=== PATIENT | female | born 1955 | race African-American/Black ===

== ENCOUNTER 2019-01-13 14:09 | Inpatient (IN) | payer MEDICARE, MEDICAID ==
[~2019-01-13] VITALS: Ht 236.2 cm; Wt 72.7 kg
[2019-01-13] MEDS ORDERED: MORPHINE SULFATE 4 MG/ML CPJ (NOT FOR IM USE) IV STA (16:14)
[2019-01-13] MEDS ORDERED: ONDANSETRON HCL 4MG/2ML INJ IV STA (16:14)
[2019-01-13] MEDS ORDERED: SODIUM CHLORIDE 0.9% 1,000 ML IV ONE (16:14)
[2019-01-13 16:41] LABS: EOSINOPHILS % 1.8 % (0.0-5.0); HEMATOCRIT. 33.3 % (36.0-48.0); HEMOGLOBIN. 10.8 g/dL (12.0-16.0); LYMPHOCYTES % 21.4 % (20.0-50.0); MEAN CORPUSCULAR HEMOGLOBIN 24.3 pg (28.0-32.0); MEAN CORPUSCULAR VOLUME 75.1 fL (81.0-99.0); MEAN PLATELET VOLUME 10.8 fl (7.4-10.4); MONOCYTES % 5.4 % (2.0-8.0); NEUTROPHILS % 70.4 % (40.0-76.0); PLATELET 83 x1000/uL (130-400); RED BLOOD CELL COUNT 4.43 mill/uL (4.2-5.4); RED CELL DISTRIBUTION WIDTH 16.6 % (11.6-14.6)
[2019-01-13 16:45] LABS: CHLORIDE 112 mEq/L (98-107)
[2019-01-13 16:51] LABS: D-DIMER 1.11 mg/L FEU (<0.50); INR 1.4; PARTIAL THROMBOPLASTIN TIME 28.3 sec (23.4-31.0); PROTHROMBIN TIME 14.3 sec (9.6-11.0)
[2019-01-13] MEDS ORDERED: MORPHINE SULFATE 4 MG/ML CPJ (NOT FOR IM USE) IV ONE (18:15)
[2019-01-13] MEDS ORDERED: ACETAMINOPHEN 325MG TABLET PO PRN (22:30)
[2019-01-13] MEDS ORDERED: IOHEXOL-350 100 ML BOTTLE ONE (22:54)
[2019-01-14] VITALS: BP 174/87
[2019-01-14] MEDS ORDERED: PREG50CA MT (01:06)
[2019-01-14] MEDS: MORPHINE SULFATE 2 MG/ML CPJ (NOT FOR IM USE) IV PRN ×3 (02:32→14:31)
[2019-01-14] MEDS: SODIUM CHLORIDE 0.9% 1,000 ML IV SCH ×2 (02:32→18:29)
[2019-01-14] MEDS: POTASSIUM CHLORIDE 20MEQ TABLET SR PO SCH ×2 (02:32→09:09)
[2019-01-14 04:00] VITALS: BP 128/72
[2019-01-14] MEDS: LORAZEPAM 2MG/ML CPJ IV PRN ×2 (04:24→20:56)
[2019-01-14] MEDS ORDERED: DEXTROSE 50% WATER 50ML SYRINGE IV PRN (06:00)
[2019-01-14] MEDS: BLOOD SUGAR DIAGNOSTIC STRIP TEST SCH ×4 (07:40→20:42)
[2019-01-14 08:00] VITALS: BP 138/99
[2019-01-14] MEDS ORDERED: ENOXAPARIN 40MG/0.4ML SYR SUBCUT SCH (09:00)
[2019-01-14] MEDS: THIAMINE HCL 100MG TABLET PO SCH (09:09)
[2019-01-14] MEDS: FOLIC ACID 1MG TABLET PO SCH (09:09)
[2019-01-14] MEDS: INSULIN LISPRO 100 UNITS/ML SUBCUT SCH ×4 (09:27→20:57)
[2019-01-14] MEDS: ONDANSETRON HCL 4MG/2ML INJ IV PRN (10:33)
[2019-01-14 10:44] LABS: CLARITY URINE CLEAR (CLEAR); COLOR URINE YELLOW (YELLOW); KETONES URINE NEGATIVE (NEGATIVE); LEUKOCYTE ESTERASE URINE NEGATIVE (NEGATIVE); NITRITE URINE NEGATIVE (NEGATIVE); OCCULT BLOOD URINE NEGATIVE (NEGATIVE); PH URINE 7.5 (4.5-8.0); PROTEIN URINE 1+ (NEGATIVE)
[2019-01-14 11:04] LABS: BASOPHILS % 0.5 % (0.0-2.0); EOSINOPHILS % 1.5 % (0.0-5.0); HEMATOCRIT. 34.7 % (36.0-48.0); HEMOGLOBIN. 11.1 g/dL (12.0-16.0); LYMPHOCYTES % 12.8 % (20.0-50.0); MEAN CORPUSCULAR HEMOGLOBIN 24.2 pg (28.0-32.0); MEAN CORPUSCULAR VOLUME 75.4 fL (81.0-99.0); MEAN PLATELET VOLUME 11.1 fl (7.4-10.4); NEUTROPHILS % 79.2 % (40.0-76.0); PLATELET 76 x1000/uL (130-400); RED BLOOD CELL COUNT 4.61 mill/uL (4.2-5.4); RED CELL DISTRIBUTION WIDTH 16.1 % (11.6-14.6)
[2019-01-14 11:08] LABS: *AMPHETAMINES SCREEN URINE NEGATIVE (NEGATIVE); *BARBITURATES SCREEN URINE NEGATIVE (NEGATIVE); *COCAINE SCREEN URINE NEGATIVE (NEGATIVE); METHADONE URINE SCREEN NEGATIVE (NEGATIVE); OPIATES URINE SCREEN PRESUMTIVE POSITIVE (NEGATIVE)
[2019-01-14 11:09] LABS: *BENZODIAZEPINES SCREEN URINE NEGATIVE (NEGATIVE); CANNABINOID URINE SCREEN NEGATIVE (NEGATIVE); PHENCYCLIDINE URINE SCREEN NEGATIVE (NEGATIVE)
[2019-01-14 11:27] LABS: CHLORIDE 104 mEq/L (98-107)
[2019-01-14 12:00] VITALS: BP 145/92
[2019-01-14 12:29] LABS: HEPATITIS B SURFACE ANTIGEN NEGATIVE
[2019-01-14] MEDS: HYDROCODONE/ACETAMINOPHEN 5/325MG TABLET PO PRN ×2 (12:45→23:24)
[2019-01-14 12:59] LABS: HEPATITIS A AB IGM NEGATIVE (NEGATIVE)
[2019-01-14 16:00] VITALS: BP 170/97
[2019-01-14] MEDS: OMEPRAZOLE 20MG CAPSULE EXTENDED RELEASE PO SCH (19:11)
[2019-01-14 20:00] VITALS: BP 154/77
[2019-01-14 22:53] LABS: BG BASE EXCESS 2.5 mmol/L (-2.0-2.0); BG DEOXYHEMOGLOBIN 3.7 % (0.0-5.0); BG FRACTION INSPIRED OXYGEN 21; BG HCO3 ACT 26.6 mmol/L (22.0-26.0); BG METHEMOGLOBIN 0.2 % (0.0-1.5); BG OXYGEN SATURATION 96.3 % (92.0-98.5); BG OXYHEMOGLOBIN 95.1 % (94.0-97.0); BG PCO2 39.1 mmHg (35.0-45.0); BG PO2 83.9 mmHg (75.0-100.0); BG SAMPLE SITE LEFT BRACHIAL; BG TOTAL HEMOGLOBIN 11.9 g/dL (12.0-18.0); BG VENT MODE ROOM AIR
[2019-01-15] VITALS: BP 150/88
[2019-01-15 04:00] VITALS: BP 142/98
[2019-01-15] MEDS: BLOOD SUGAR DIAGNOSTIC STRIP TEST SCH ×4 (07:40→20:06)
[2019-01-15 08:00] VITALS: BP 139/84
[2019-01-15] MEDS: THIAMINE HCL 100MG TABLET PO SCH (09:00)
[2019-01-15] MEDS: POTASSIUM CHLORIDE 20MEQ TABLET SR PO SCH (09:00)
[2019-01-15] MEDS: FOLIC ACID 1MG TABLET PO SCH (09:00)
[2019-01-15] MEDS: MULTIVITAMINS,THER W-MINERALS TABLET PO SCH (09:00)
[2019-01-15] MEDS: SODIUM CHLORIDE 0.9% 1,000 ML IV SCH (11:09)
[2019-01-15 11:43] LABS: BASOPHILS % 0.6 % (0.0-2.0); EOSINOPHILS % 1.5 % (0.0-5.0); HEMATOCRIT. 36.1 % (36.0-48.0); HEMOGLOBIN. 11.5 g/dL (12.0-16.0); LYMPHOCYTES % 9.7 % (20.0-50.0); MEAN CORPUSCULAR VOLUME 75.2 fL (81.0-99.0); MEAN PLATELET VOLUME 11.1 fl (7.4-10.4); MONOCYTES % 6.6 % (2.0-8.0); NEUTROPHILS % 81.6 % (40.0-76.0); PLATELET 92 x1000/uL (130-400); RED BLOOD CELL COUNT 4.79 mill/uL (4.2-5.4); RED CELL DISTRIBUTION WIDTH 16.3 % (11.6-14.6)
[2019-01-15 12:00] VITALS: BP 144/98
[2019-01-15] MEDS: INSULIN LISPRO 100 UNITS/ML SUBCUT SCH ×3 (12:52→20:08)
[2019-01-15] MEDS: DIPHENHYDRAMINE 25MG CAPSULE PO PRN ×2 (15:35→22:15)
[2019-01-15 16:00] VITALS: BP 144/90
[2019-01-15] MEDS: OMEPRAZOLE 20MG CAPSULE EXTENDED RELEASE PO SCH (17:35)
[2019-01-15] MEDS: OXYCODONE HCL 5MG TABLET PO PRN (20:51)
[2019-01-16 00:02] VITALS: BP 132/91
[2019-01-16] MEDS: LORAZEPAM 2MG/ML CPJ IV PRN ×2 (00:02→13:35)
[2019-01-16] MEDS: SODIUM CHLORIDE 0.9% 1,000 ML IV SCH ×2 (03:49→20:56)
[2019-01-16 04:48] VITALS: BP 108/73
[2019-01-16 06:13] LABS: BASOPHILS % 0.4 % (0.0-2.0); EOSINOPHILS % 1.7 % (0.0-5.0); HEMOGLOBIN. 11.6 g/dL (12.0-16.0); LYMPHOCYTES % 16.5 % (20.0-50.0); MEAN CORPUSCULAR HEMOGLOBIN 24.3 pg (28.0-32.0); MEAN CORPUSCULAR VOLUME 75.2 fL (81.0-99.0); MEAN PLATELET VOLUME 11.4 fl (7.4-10.4); MONOCYTES % 7.1 % (2.0-8.0); NEUTROPHILS % 74.3 % (40.0-76.0); PLATELET 85 x1000/uL (130-400); RED BLOOD CELL COUNT 4.78 mill/uL (4.2-5.4); RED CELL DISTRIBUTION WIDTH 16.4 % (11.6-14.6)
[2019-01-16 06:35] LABS: CHLORIDE 108 mEq/L (98-107)
[2019-01-16 08:00] VITALS: BP 117/72
[2019-01-16] MEDS: FOLIC ACID 1MG TABLET PO SCH (08:28)
[2019-01-16] MEDS: POTASSIUM CHLORIDE 20MEQ TABLET SR PO SCH (08:31)
[2019-01-16] MEDS: BLOOD SUGAR DIAGNOSTIC STRIP TEST SCH ×4 (08:32→20:56)
[2019-01-16] MEDS: OMEPRAZOLE 20MG CAPSULE EXTENDED RELEASE PO SCH (08:32)
[2019-01-16] MEDS: MULTIVITAMINS,THER W-MINERALS TABLET PO SCH (08:32)
[2019-01-16] MEDS: THIAMINE HCL 100MG TABLET PO SCH (08:32)
[2019-01-16] MEDS: INSULIN LISPRO 100 UNITS/ML SUBCUT SCH ×4 (08:40→21:00)
[2019-01-16] MEDS: OXYCODONE HCL 5MG TABLET PO PRN ×3 (09:17→22:33)
[2019-01-16] MEDS: ONDANSETRON HCL 4MG/2ML INJ IV PRN (09:17)
[2019-01-16 12:00] VITALS: BP 103/72
[2019-01-16 15:23] LABS: INR 1.3; PROTHROMBIN TIME 13.6 sec (9.6-11.0)
[2019-01-16 15:26] VITALS: BP 121/75
[2019-01-16] MEDS: DIPHENHYDRAMINE 25MG CAPSULE PO PRN ×2 (15:28→22:33)
[2019-01-16] MEDS ORDERED: SORBITOL 70% SOLN 30ML PO NR ×2 (16:00→20:00)
[2019-01-16 20:00] VITALS: BP 126/85
[2019-01-16] MEDS: HYDROCODONE/ACETAMINOPHEN 5/325MG TABLET PO PRN (20:53)
[2019-01-16] MEDS: PANTOPRAZOLE SODIUM 40 MG/VIAL IV SCH (20:55)
[2019-01-16] MEDS: INSULIN GLARGINE UD 100 UNITS/ML SYR SUBCUT SCH (22:35)
[2019-01-17] VITALS: BP 128/81
[2019-01-17] MEDS: LORAZEPAM 2MG/ML CPJ IV PRN ×2 (00:27→21:48)
[2019-01-17 04:00] VITALS: BP 158/103
[2019-01-17 08:00] VITALS: BP 115/76
[2019-01-17] MEDS: INSULIN LISPRO 100 UNITS/ML SUBCUT SCH ×4 (08:00→20:43)
[2019-01-17] MEDS: BLOOD SUGAR DIAGNOSTIC STRIP TEST SCH ×4 (08:00→21:00)
[2019-01-17] MEDS: THIAMINE HCL 100MG TABLET PO SCH (08:12)
[2019-01-17] MEDS: MULTIVITAMINS,THER W-MINERALS TABLET PO SCH (08:12)
[2019-01-17] MEDS: POTASSIUM CHLORIDE 20MEQ TABLET SR PO SCH (08:12)
[2019-01-17] MEDS: FOLIC ACID 1MG TABLET PO SCH (08:12)
[2019-01-17] MEDS: PANTOPRAZOLE SODIUM 40 MG/VIAL IV SCH ×2 (09:32→20:42)
[2019-01-17] MEDS: INSULIN GLARGINE UD 100 UNITS/ML SYR SUBCUT SCH ×2 (10:00→21:49)
[2019-01-17 10:14] LABS: BASOPHILS % 0.3 % (0.0-2.0); EOSINOPHILS % 1.2 % (0.0-5.0); HEMATOCRIT. 35.8 % (36.0-48.0); HEMOGLOBIN. 11.5 g/dL (12.0-16.0); LYMPHOCYTES % 10.4 % (20.0-50.0); MEAN CORPUSCULAR HEMOGLOBIN 24.5 pg (28.0-32.0); MEAN CORPUSCULAR VOLUME 76.7 fL (81.0-99.0); MEAN PLATELET VOLUME 11.3 fl (7.4-10.4); MONOCYTES % 6.9 % (2.0-8.0); NEUTROPHILS % 81.2 % (40.0-76.0); PLATELET 89 x1000/uL (130-400); RED BLOOD CELL COUNT 4.67 mill/uL (4.2-5.4); RED CELL DISTRIBUTION WIDTH 16.7 % (11.6-14.6)
[2019-01-17 10:25] LABS: CHLORIDE 114 mEq/L (98-107)
[2019-01-17 12:00] VITALS: BP 130/72
[2019-01-17] MEDS: SODIUM CHLORIDE 0.9% 1,000 ML IV SCH (14:26)
[2019-01-17] MEDS ORDERED: PROPOFOL 200MG/20ML VIAL IV ONE (14:48)
[2019-01-17] MEDS ORDERED: LIDOCAINE HCL/PF 1% 10 MG/ML 5ML VIAL ONE (14:48)
[2019-01-17 17:10] VITALS: BP 117/71
[2019-01-17 20:00] VITALS: BP 127/78
[2019-01-17] MEDS: OXYCODONE HCL 5MG TABLET PO PRN (20:40)
[2019-01-17] MEDS: DIPHENHYDRAMINE 25MG CAPSULE PO PRN (20:42)
[2019-01-18] VITALS: BP 111/69
[2019-01-18 04:00] VITALS: BP 125/77
[2019-01-18] MEDS: SODIUM CHLORIDE 0.9% 1,000 ML IV SCH ×2 (05:49→22:29)
[2019-01-18] MEDS: BLOOD SUGAR DIAGNOSTIC STRIP TEST SCH ×4 (05:49→20:33)
[2019-01-18] MEDS: OXYCODONE HCL 5MG TABLET PO PRN ×3 (05:54→20:32)
[2019-01-18] MEDS: DIPHENHYDRAMINE 25MG CAPSULE PO PRN ×2 (05:54→17:53)
[2019-01-18 08:00] VITALS: BP 123/72
[2019-01-18] MEDS: POTASSIUM CHLORIDE 20MEQ TABLET SR PO SCH (09:01)
[2019-01-18] MEDS: PANTOPRAZOLE SODIUM 40 MG/VIAL IV SCH ×2 (09:01→20:32)
[2019-01-18] MEDS: THIAMINE HCL 100MG TABLET PO SCH (09:01)
[2019-01-18] MEDS: FOLIC ACID 1MG TABLET PO SCH (09:01)
[2019-01-18] MEDS: MULTIVITAMINS,THER W-MINERALS TABLET PO SCH (09:02)
[2019-01-18] MEDS: INSULIN GLARGINE UD 100 UNITS/ML SYR SUBCUT SCH ×2 (09:19→23:34)
[2019-01-18] MEDS: INSULIN LISPRO 100 UNITS/ML SUBCUT SCH ×4 (09:22→20:33)
[2019-01-18 12:00] VITALS: BP 135/68
[2019-01-18] MEDS: PROPRANOLOL HCL 10MG TABLET PO SCH ×2 (13:49→20:32)
[2019-01-18 16:00] VITALS: BP 132/63
[2019-01-18] MEDS: LORAZEPAM 2MG/ML CPJ IV PRN (23:32)
[2019-01-19] VITALS: BP 121/70
[2019-01-19] MEDS: DIPHENHYDRAMINE 25MG CAPSULE PO PRN ×2 (00:28→08:30)
[2019-01-19] MEDS: OXYCODONE HCL 5MG TABLET PO PRN ×4 (02:58→21:01)
[2019-01-19 04:00] VITALS: BP 118/69
[2019-01-19] MEDS: BLOOD SUGAR DIAGNOSTIC STRIP TEST SCH ×4 (06:45→20:19)
[2019-01-19 07:20] LABS: BASOPHILS % 0.4 % (0.0-2.0); EOSINOPHILS % 3.1 % (0.0-5.0); HEMATOCRIT. 32.6 % (36.0-48.0); HEMOGLOBIN. 10.4 g/dL (12.0-16.0); LYMPHOCYTES % 19.8 % (20.0-50.0); MEAN CORPUSCULAR HEMOGLOBIN 24.8 pg (28.0-32.0); MEAN CORPUSCULAR VOLUME 77.5 fL (81.0-99.0); MEAN PLATELET VOLUME 11.7 fl (7.4-10.4); MONOCYTES % 8.6 % (2.0-8.0); NEUTROPHILS % 68.1 % (40.0-76.0); PLATELET 73 x1000/uL (130-400); RED BLOOD CELL COUNT 4.21 mill/uL (4.2-5.4)
[2019-01-19 07:42] LABS: CHLORIDE 110 mEq/L (98-107)
[2019-01-19] MEDS: INSULIN LISPRO 100 UNITS/ML SUBCUT SCH ×4 (07:55→20:19)
[2019-01-19 08:00] VITALS: BP 104/71
[2019-01-19] MEDS: PROPRANOLOL HCL 10MG TABLET PO SCH ×2 (09:00→20:50)
[2019-01-19] MEDS: PANTOPRAZOLE SODIUM 40 MG/VIAL IV SCH ×2 (09:00→20:49)
[2019-01-19] MEDS: MULTIVITAMINS,THER W-MINERALS TABLET PO SCH (10:01)
[2019-01-19] MEDS: THIAMINE HCL 100MG TABLET PO SCH (10:01)
[2019-01-19] MEDS: FOLIC ACID 1MG TABLET PO SCH (10:01)
[2019-01-19] MEDS: POTASSIUM CHLORIDE 20MEQ TABLET SR PO SCH (10:01)
[2019-01-19] MEDS: INSULIN GLARGINE UD 100 UNITS/ML SYR SUBCUT SCH ×2 (10:05→21:04)
[2019-01-19] MEDS: SODIUM CHLORIDE 0.9% 1,000 ML IV SCH (15:09)
[2019-01-19 15:43] VITALS: BP 124/82
[2019-01-19 20:00] VITALS: BP 145/80
[2019-01-19] MEDS: LORAZEPAM 1MG TABLET PO PRN (23:16)
[2019-01-20] VITALS: BP 115/69
[2019-01-20] MEDS: HYDROCODONE/ACETAMINOPHEN 5/325MG TABLET PO PRN ×2 (00:59→21:15)
[2019-01-20] MEDS: DIPHENHYDRAMINE 25MG CAPSULE PO PRN (03:16)
[2019-01-20 04:00] VITALS: BP 140/69
[2019-01-20] MEDS: BLOOD SUGAR DIAGNOSTIC STRIP TEST SCH ×4 (06:10→21:05)
[2019-01-20] MEDS: SODIUM CHLORIDE 0.9% 1,000 ML IV SCH (07:49)
[2019-01-20 08:00] VITALS: BP 113/68
[2019-01-20] MEDS: INSULIN LISPRO 100 UNITS/ML SUBCUT SCH ×4 (08:10→21:05)
[2019-01-20] MEDS: PROPRANOLOL HCL 10MG TABLET PO SCH ×2 (09:00→21:01)
[2019-01-20] MEDS: PANTOPRAZOLE SODIUM 40 MG/VIAL IV SCH ×2 (09:36→21:00)
[2019-01-20] MEDS: POTASSIUM CHLORIDE 20MEQ TABLET SR PO SCH (09:36)
[2019-01-20] MEDS: FOLIC ACID 1MG TABLET PO SCH (09:37)
[2019-01-20] MEDS: MULTIVITAMINS,THER W-MINERALS TABLET PO SCH (09:37)
[2019-01-20] MEDS: THIAMINE HCL 100MG TABLET PO SCH (09:37)
[2019-01-20] MEDS: OXYCODONE HCL 5MG TABLET PO PRN ×3 (10:56→23:58)
[2019-01-20] MEDS: INSULIN GLARGINE UD 100 UNITS/ML SYR SUBCUT SCH ×2 (10:59→22:19)
[2019-01-20 12:00] VITALS: BP 128/86
[2019-01-20 16:00] VITALS: BP 139/89
[2019-01-20 20:00] VITALS: BP 158/86
[2019-01-20] MEDS: METHOCARBAMOL 750MG TABLET PO SCH (21:00)
[2019-01-20] MEDS: LORAZEPAM 1MG TABLET PO PRN (21:00)
[2019-01-21] VITALS: BP 140/73
[2019-01-21 04:00] VITALS: BP 118/60
[2019-01-21] MEDS: METHOCARBAMOL 750MG TABLET PO SCH ×3 (05:56→22:01)
[2019-01-21] MEDS: OXYCODONE HCL 5MG TABLET PO PRN ×3 (06:14→20:43)
[2019-01-21] MEDS: BLOOD SUGAR DIAGNOSTIC STRIP TEST SCH ×4 (07:40→21:22)
[2019-01-21 08:00] VITALS: BP 141/70
[2019-01-21] MEDS: INSULIN LISPRO 100 UNITS/ML SUBCUT SCH ×4 (08:10→21:00)
[2019-01-21] MEDS: PANTOPRAZOLE SODIUM 40 MG/VIAL IV SCH ×2 (08:45→21:15)
[2019-01-21] MEDS: MULTIVITAMINS,THER W-MINERALS TABLET PO SCH (08:46)
[2019-01-21] MEDS: PREGABALIN 75MG CAPSULE PO SCH ×2 (08:47→21:14)
[2019-01-21] MEDS: DICLOFENAC SODIUM 75MG DR (EC) TABLET PO SCH ×2 (08:47→21:14)
[2019-01-21] MEDS: DULOXETINE HCL 60MG DR CAPSULE PO SCH (08:47)
[2019-01-21] MEDS: FOLIC ACID 1MG TABLET PO SCH (08:47)
[2019-01-21] MEDS: THIAMINE HCL 100MG TABLET PO SCH (08:47)
[2019-01-21] MEDS: PROPRANOLOL HCL 10MG TABLET PO SCH ×2 (08:48→21:15)
[2019-01-21] MEDS: POTASSIUM CHLORIDE 20MEQ TABLET SR PO SCH (08:48)
[2019-01-21 09:11] LABS: T4 FREE 0.87 ng/dL (0.76-1.46)
[2019-01-21] MEDS: INSULIN GLARGINE UD 100 UNITS/ML SYR SUBCUT SCH ×2 (10:47→21:23)
[2019-01-21 11:09] LABS: CREATINE KINASE 76 IU/L (26-192)
[2019-01-21 12:00] VITALS: BP 128/69
[2019-01-21] MEDS: HYDROCODONE/ACETAMINOPHEN 5/325MG TABLET PO PRN (14:22)
[2019-01-21 16:00] VITALS: BP 95/50
[2019-01-21 20:00] VITALS: BP 131/75
[2019-01-22 00:21] VITALS: BP 99/56
[2019-01-22 04:00] VITALS: BP 110/66
[2019-01-22] MEDS: HYDROCODONE/ACETAMINOPHEN 5/325MG TABLET PO PRN (04:45)
[2019-01-22] MEDS: METHOCARBAMOL 750MG TABLET PO SCH ×3 (06:05→21:54)
[2019-01-22] MEDS: BLOOD SUGAR DIAGNOSTIC STRIP TEST SCH ×4 (06:18→21:30)
[2019-01-22 08:00] VITALS: BP 95/66
[2019-01-22] MEDS: INSULIN LISPRO 100 UNITS/ML SUBCUT SCH ×4 (08:10→21:00)
[2019-01-22] MEDS: PANTOPRAZOLE SODIUM 40 MG/VIAL IV SCH (08:49)
[2019-01-22] MEDS: POTASSIUM CHLORIDE 20MEQ TABLET SR PO SCH (08:50)
[2019-01-22] MEDS: PROPRANOLOL HCL 10MG TABLET PO SCH ×2 (08:50→21:54)
[2019-01-22] MEDS: MULTIVITAMINS,THER W-MINERALS TABLET PO SCH (08:51)
[2019-01-22] MEDS: THIAMINE HCL 100MG TABLET PO SCH (08:51)
[2019-01-22] MEDS: PREGABALIN 75MG CAPSULE PO SCH ×2 (08:51→21:53)
[2019-01-22] MEDS: DICLOFENAC SODIUM 75MG DR (EC) TABLET PO SCH ×2 (08:51→21:53)
[2019-01-22] MEDS: DULOXETINE HCL 60MG DR CAPSULE PO SCH (09:05)
[2019-01-22] MEDS: FOLIC ACID 1MG TABLET PO SCH (09:05)
[2019-01-22] MEDS: INSULIN GLARGINE UD 100 UNITS/ML SYR SUBCUT SCH ×2 (10:00→21:31)
[2019-01-22] MEDS: OXYCODONE HCL 5MG TABLET PO PRN ×2 (11:23→20:17)
[2019-01-22 12:00] VITALS: BP 117/68
[2019-01-22] MEDS: LORAZEPAM 1MG TABLET PO PRN (15:48)
[2019-01-22 16:00] VITALS: BP 115/70
[2019-01-22 20:00] VITALS: BP 133/82
[2019-01-22] MEDS: PANTOPRAZOLE 40MG DR TABLET PO SCH (21:53)
[2019-01-23] VITALS: BP 92/50
[2019-01-23] MEDS: BLOOD SUGAR DIAGNOSTIC STRIP TEST SCH ×2 (05:59→12:40)
[2019-01-23] MEDS: METHOCARBAMOL 750MG TABLET PO SCH ×2 (06:03→14:00)
[2019-01-23] MEDS: OXYCODONE HCL 5MG TABLET PO PRN (06:04)
[2019-01-23 07:14] LABS: BASOPHILS % 0.8 % (0.0-2.0); EOSINOPHILS % 4.3 % (0.0-5.0); HEMATOCRIT. 31.5 % (36.0-48.0); LYMPHOCYTES % 19.9 % (20.0-50.0); MEAN CORPUSCULAR HEMOGLOBIN 24.6 pg (28.0-32.0); MEAN CORPUSCULAR VOLUME 77.6 fL (81.0-99.0); MEAN PLATELET VOLUME 12.1 fl (7.4-10.4); MONOCYTES % 12.5 % (2.0-8.0); NEUTROPHILS % 62.5 % (40.0-76.0); PLATELET 67 x1000/uL (130-400); RED BLOOD CELL COUNT 4.06 mill/uL (4.2-5.4); RED CELL DISTRIBUTION WIDTH 18.2 % (11.6-14.6)
[2019-01-23 07:39] LABS: CHLORIDE 110 mEq/L (98-107)
[2019-01-23 08:00] VITALS: BP 104/53
[2019-01-23] MEDS: INSULIN LISPRO 100 UNITS/ML SUBCUT SCH ×2 (08:10→13:10)
[2019-01-23 09:08] LABS: COMPLEMENT C3 103 mg/dL (82-167); G6PD RBC 4.26 x10E6/uL (3.77-5.28)
[2019-01-23] MEDS: INSULIN GLARGINE UD 100 UNITS/ML SYR SUBCUT SCH (10:00)
[2019-01-23] MEDS: FOLIC ACID 1MG TABLET PO SCH (10:24)
[2019-01-23] MEDS: MULTIVITAMINS,THER W-MINERALS TABLET PO SCH (10:24)
[2019-01-23] MEDS: DULOXETINE HCL 60MG DR CAPSULE PO SCH (10:24)
[2019-01-23] MEDS: POTASSIUM CHLORIDE 20MEQ TABLET SR PO SCH (10:24)
[2019-01-23] MEDS: DICLOFENAC SODIUM 75MG DR (EC) TABLET PO SCH (10:24)
[2019-01-23] MEDS: PROPRANOLOL HCL 10MG TABLET PO SCH (10:24)
[2019-01-23] MEDS: PREGABALIN 75MG CAPSULE PO SCH (10:25)
[2019-01-23] MEDS: PANTOPRAZOLE 40MG DR TABLET PO SCH (10:25)
[2019-01-23] MEDS: THIAMINE HCL 100MG TABLET PO SCH (10:25)
[2019-01-23] MEDS: HYDROCODONE/ACETAMINOPHEN 5/325MG TABLET PO PRN ×2 (10:37→15:10)
[2019-01-23 12:00] VITALS: BP 120/71
[2019-01-23] MEDS: LORAZEPAM 1MG TABLET PO PRN (15:10)
[2019-01-23 16:05] VITALS: BP 120/71
[2019-01-24 13:08] LABS: G6PD QUANTITATIVE 412 (146-376)
[2019-01-25 07:02] LABS: ANTI-DNA DOUBLE STRANDED QUANT < 1 IU/mL (0-9); ANTI-JO 1 ABS <0.2 AI (0.0-0.9); RNP ANTIBODY 0.2 AI (0.0-0.9); SMITH ANTIBODY < 0.2 AI (0.0-0.9)
[2019-01-25 10:10] LABS: ANTI-CARDIOLIPIN AB IGA 10 APL U/mL (0-11); ANTI-CARDIOLIPIN AB IGG < 9 GPL U/mL (0-14); ANTI-CARDIOLIPIN AB IGM 9 MPL U/mL (0-12)
[2019-01-25 13:34] LABS: ANA IFA Negative (.); ANGIOTENSION CONVERTING ENZYME 25 U/L (14-82); ATYPICAL P-ANCA <1:20 titer (Neg:<1:20); CYTOPLASMIC C-ANCA <1:20 titer (Neg:<1:20); MITOCHONDRIAL M2 AB <20.0 Units (0.0-20.0); PERINUCLEAR P-ANCA <1:20 titer (Neg:<1:20); VITAMIN D 1-25 DIHYDROXY 52.8 pg/mL (19.9-79.3)
[2019-01-25 15:10] LABS: ACTIN (SMOOTH MUSCLE) ANTIBODY 12 Units (0-19); ANTI-MYELOPEROXIDASE AB < 9.0 U/mL (0.0-9.0); ANTI-PROTEINASE 3 ABS < 3.5 U/mL (0.0-3.5)
[2019-01-25 19:10] LABS: CYC CITRULLINATED PEP IgG/IgA 9 units (0-19)
[2019-01-26 04:11] LABS: ALDOLASE 4.6 U/L (3.3-10.3); DRVVT LA 38.3 sec (0.0-47.0); LUPUS ANTICOAG INTERPRETATION Comment: (.); PTT-LA 46.5 sec (0.0-51.9)
== END 2019-01-23 17:00 | disposition home or self-care (01) | DRG 391 ==
LOC: ER 14:09 → 6EST 21:03 → EDBEDREQ 21:26 → ENRESERV 21:53 → 7WST 01-14 03:05
PROVIDERS: ADMIT Internal Medicine Nephrology; ATTEND Internal Medicine Nephrology
PROC: 0DB78ZX Excision of Stomach, Pylorus, Via Natural or Artificial Opening Endoscopic, Diagnostic (ICD-10-PCS; principal; 2019-01-20)
PROC: 0DJD8ZZ Inspection of Lower Intestinal Tract, Via Natural or Artificial Opening Endoscopic (ICD-10-PCS; 2019-01-20)
DX: K52.9 Noninfective gastroenteritis and colitis, unspecified (principal); J96.00 Acute respiratory failure, unspecified whether with hypoxia or hypercapnia; D61.818 Other pancytopenia; K76.6 Portal hypertension; I27.82 Chronic pulmonary embolism; G93.40 Encephalopathy, unspecified; I85.00 Esophageal varices without bleeding; C18.9 Malignant neoplasm of colon, unspecified; D68.9 Coagulation defect, unspecified; E46 Unspecified protein-calorie malnutrition; K57.90 Diverticulosis of intestine, part unspecified, without perforation or abscess without bleeding; E87.6 Hypokalemia; E87.8 Other disorders of electrolyte and fluid balance, not elsewhere classified; E11.9 Type 2 diabetes mellitus without complications; G89.29 Other chronic pain; F10.10 Alcohol abuse, uncomplicated; K64.8 Other hemorrhoids; F41.8 Other specified anxiety disorders; I73.00 Raynaud's syndrome without gangrene; J45.909 Unspecified asthma, uncomplicated; K63.5 Polyp of colon; R74.0 Nonspecific elevation of levels of transaminase and lactic acid dehydrogenase [LDH]; K31.89 Other diseases of stomach and duodenum; K70.31 Alcoholic cirrhosis of liver with ascites; M06.9 Rheumatoid arthritis, unspecified; M13.0 Polyarthritis, unspecified; M62.89 Other specified disorders of muscle; M79.7 Fibromyalgia; N20.0 Calculus of kidney; Z59.0 Homelessness; Z80.0 Family history of malignant neoplasm of digestive organs; Z92.21 Personal history of antineoplastic chemotherapy; Z98.891 History of uterine scar from previous surgery; Z86.718 Personal history of other venous thrombosis and embolism
CPT/HCPCS: 36415; 36600; 71045; 71275; 72100; 73030; 73130; 73522; 74176; 76705; 80048; 80076; 80305; 81003; 82085; 82105; 82164; 82375; 82378; 82550; 82595; 82652; 82805; 82955; 82962; 83516; 83520; 83880; 84134; 84439; 84484; 84550; 85041; 85379; 85613; 85651; 85732; 86147; 86160; 86200; 86225; 86235; 86256; 86431; 86592; 86705; 86709; 86780; 86803; 87340; 88305; 88312; 88313; 93005; 93306; 93970; 97116; 97162; 99285; C1893; C9113; J1815; J2060; J2270; J2405; J2704; J3490; J7030; Q0163; Q9967

== ENCOUNTER 2019-01-31 15:20 | Emergency (ER) | payer MEDICARE, MEDICAID ==
[~2019-01-31] VITALS: Ht 162.6 cm; Wt 70.0 kg
[~2019-01-31 15:20] MED LIST: PREG50CA MT
[2019-01-31 16:57] LABS: BASOPHILS % 0.5 % (0.0-2.0); EOSINOPHILS % 2.6 % (0.0-5.0); HEMATOCRIT. 33.7 % (36.0-48.0); HEMOGLOBIN. 10.7 g/dL (12.0-16.0); MEAN CORPUSCULAR HEMOGLOBIN 24.8 pg (28.0-32.0); MEAN CORPUSCULAR VOLUME 77.9 fL (81.0-99.0); MEAN PLATELET VOLUME 10.7 fl (7.4-10.4); MONOCYTES % 10.9 % (2.0-8.0); PLATELET 78 x1000/uL (130-400); RED BLOOD CELL COUNT 4.33 mill/uL (4.2-5.4); RED CELL DISTRIBUTION WIDTH 18.7 % (11.6-14.6)
[2019-01-31 16:59] LABS: CHLORIDE 111 mEq/L (98-107)
[2019-01-31] MEDS ORDERED: HYDROCODONE/ACETAMINOPHEN 5/325MG TABLET PO ONE (17:15)
[2019-01-31] MEDS ORDERED: KETOROLAC 30MG/ML VIAL IV ONE (17:15)
[2019-01-31 19:00] VITALS: BP 145/98
[2019-01-31] MEDS ORDERED: POTASSIUM CHLORIDE 20MEQ TABLET SR PO ONE (20:00)
== END 2019-01-31 21:14 | disposition home or self-care (01) ==
LOC: ER 15:20
DX: G89.29 Other chronic pain (principal); D50.9 Iron deficiency anemia, unspecified; F41.9 Anxiety disorder, unspecified; M25.559 Pain in unspecified hip; F32.9 Major depressive disorder, single episode, unspecified; E11.9 Type 2 diabetes mellitus without complications; K52.9 Noninfective gastroenteritis and colitis, unspecified; F10.10 Alcohol abuse, uncomplicated; K74.60 Unspecified cirrhosis of liver; I10 Essential (primary) hypertension; Z98.890 Other specified postprocedural states; Z86.718 Personal history of other venous thrombosis and embolism; Z87.19 Personal history of other diseases of the digestive system; Z59.0 Homelessness; Z85.038 Personal history of other malignant neoplasm of large intestine; Y90.9 Presence of alcohol in blood, level not specified
CPT/HCPCS: 36415; 80053; 82962; 84484; 85025; 93005; 96374; 99284; J1885

== ENCOUNTER 2019-02-01 07:20 | Emergency (ER) | payer MEDICARE, MEDICAID ==
[~2019-02-01] VITALS: Ht 162.6 cm; Wt 70.0 kg
[2019-02-01] MEDS ORDERED: HYDROCODONE/ACETAMINOPHEN 5/325MG TABLET PO ONE (08:00)
[2019-02-01] MEDS ORDERED: ACETAMINOPHEN WITH CODEINE 300/30MG TABLET PO ONE (15:15)
[2019-02-01 15:56] VITALS: BP 145/83
== END 2019-02-01 16:15 | disposition home or self-care (01) ==
LOC: ER 07:20
DX: Z76.0 Encounter for issue of repeat prescription (principal); E11.9 Type 2 diabetes mellitus without complications; F32.9 Major depressive disorder, single episode, unspecified; F41.9 Anxiety disorder, unspecified; F17.200 Nicotine dependence, unspecified, uncomplicated; Z79.4 Long term (current) use of insulin; Z85.9 Personal history of malignant neoplasm, unspecified; Z86.718 Personal history of other venous thrombosis and embolism
CPT/HCPCS: 82962; 99283